=== PATIENT | female | born 1955 | race Caucasian/White ===

== ENCOUNTER 2017-01-10 12:07 | Emergency (ER) | payer MEDICAID ==
[~2017-01-10] VITALS: Ht 154.9 cm; Wt 66.6 kg
[2017-01-10 12:11] VITALS: BP 145/87
== END 2017-01-10 12:59 | disposition home or self-care (01) ==
LOC: ED 12:53
DX: J20.8 Acute bronchitis due to other specified organisms (principal); B96.89 Other specified bacterial agents as the cause of diseases classified elsewhere; J00 Acute nasopharyngitis [common cold]; Z88.0 Allergy status to penicillin
CPT/HCPCS: 99283

== ENCOUNTER 2017-02-26 14:00 | Emergency (ER) | payer MEDICAID ==
[~2017-02-26] VITALS: Ht 154.9 cm; Wt 66.3 kg
[2017-02-26 14:02] VITALS: BP 170/100
== END 2017-02-26 15:47 | disposition left against medical advice (07) ==
LOC: ED 15:41
DX: B37.9 Candidiasis, unspecified (principal)
CPT/HCPCS: 99281

== ENCOUNTER 2018-02-12 13:13 | Emergency (ER) | payer MEDICAID ==
[~2018-02-12] VITALS: Ht 154.9 cm; Wt 62.4 kg
[2018-02-12] MEDS ORDERED: HYDROcodone/APAP 5/325 TABLET PO STA (13:39)
[2018-02-12] MEDS ORDERED: DIAZEPAM 5 MG TABLET ONE (13:42)
[2018-02-12] MEDS ORDERED: HYDROcodone/APAP 5/325 TABLET ONE (13:42)
[2018-02-12] MEDS ORDERED: DIAZEPAM 5 MG TABLET PO ONE (14:00)
[2018-02-12 14:03] VITALS: BP 171/86
== END 2018-02-12 15:05 | disposition home or self-care (01) ==
LOC: ED 15:03
DX: S16.1XXA Strain of muscle, fascia and tendon at neck level, initial encounter (principal); M54.14 Radiculopathy, thoracic region; I10 Essential (primary) hypertension; F17.200 Nicotine dependence, unspecified, uncomplicated; X58.XXXA Exposure to other specified factors, initial encounter; Y93.89 Activity, other specified; Y99.8 Other external cause status; Y92.89 Other specified places as the place of occurrence of the external cause
CPT/HCPCS: 72050; 99284

== ENCOUNTER 2018-05-15 07:20 | Emergency (ER) | payer MEDICAID ==
[~2018-05-15] VITALS: Ht 157.5 cm; Wt 61.1 kg
[2018-05-15 07:22] VITALS: BP 121/74
[2018-05-15] MEDS ORDERED: DIAZEPAM 5 MG TABLET ONE (07:47)
[2018-05-15] MEDS ORDERED: HYDROcodone/APAP 5/325 TABLET ONE (07:47)
--- NOTE | 2018-05-15 07:49 | NUR ---
pt to XR
[2018-05-15] MEDS ORDERED: DIAZEPAM 5 MG TABLET PO ONE (08:00)
[2018-05-15] MEDS ORDERED: HYDROcodone/APAP 5/325 TABLET PO ONE (08:00)
--- NOTE | 2018-05-15 08:03 | NUR ---
pt returned from XR
[2018-05-15] MEDS ORDERED: KETOROLAC 30 MG/1 ML IM ONE (09:00)
[2018-05-15] MEDS ORDERED: KETOROLAC 30 MG/1 ML ONE (09:18)
--- NOTE | 2018-05-15 09:34 | NUR ---
TASK RN: Provided medication per EMAR. Pt appreciatice. NADN. No needs expressed at this time.
--- NOTE | 2018-05-15 09:39 | NUR ---
Patient given discharge instructions and Rx, they have confirmed that they understand the instructions. Patient ambulatory with steady gait.
== END 2018-05-15 09:40 | disposition home or self-care (01) ==
LOC: ED 08:51
DX: J06.9 Acute upper respiratory infection, unspecified (principal); I10 Essential (primary) hypertension; F17.200 Nicotine dependence, unspecified, uncomplicated
CPT/HCPCS: 71046; 72050; 96372; 99283; J1885